=== PATIENT | female | born 1985 | race Caucasian/White ===

== ENCOUNTER → 2017-04-21 | Outpatient (CLI) | payer BC, OTHER, MEDICAID ==
[~2017-04-21] MED LIST: ALEVE 220MG220 MG PO; AMOXICILLIN 8751 TAB PO; ANAPROX DS550 MG PO; CYMBALTA 60MG60 MG PO; KETOROLAC10 MG PO; KLONOPIN 0.5MG0.5 MG PO; MACROBID 1100 MG/CAP PO; MOTRIN 600600 MG/TAB PO; NO HOME MEDICATIONS; NORCO 325 MG-51 TAB PO; PERCOCET 325 MG1 TA2 PO; PRENATAL1 TA1 PO; ROBAXIN 75750 MG/TAB PO; ULTRAM 50MG TAB50 MG PO; VOLTAREN 75 DR75 MG PO; WELLBUTRIN 75MG75 MG PO; ZOFRAN 4MG T4 MG/TAB PO
== END ==
LOC: MHCPAIN 09:41
DX: G89.29 Other chronic pain (principal); M53.3 Sacrococcygeal disorders, not elsewhere classified; M79.2 Neuralgia and neuritis, unspecified; M79.1 Myalgia
CPT/HCPCS: G0463

== ENCOUNTER 2017-11-03 13:10 | Emergency (ER) | payer OTHER ==
[~2017-11-03] VITALS: Ht 162.6 cm; Wt 46.4 kg
[2017-11-03 13:29] VITALS: TEMP 99
[2017-11-03] MEDS ORDERED: NORCO 325 MG-51 TAB PO (15:54)
[2017-11-03 16:46] VITALS: BP 129/101; PULSE 62
== END 2017-11-03 16:52 | disposition home or self-care (01) ==
LOC: COL.ER 13:10
DX: S01.511A Laceration without foreign body of lip, initial encounter (principal); S01.21XA Laceration without foreign body of nose, initial encounter; S40.211A Abrasion of right shoulder, initial encounter; S09.90XA Unspecified injury of head, initial encounter; S09.93XA Unspecified injury of face, initial encounter; F17.210 Nicotine dependence, cigarettes, uncomplicated; Z23 Encounter for immunization; Z88.4 Allergy status to anesthetic agent; Y04.0XXA Assault by unarmed brawl or fight, initial encounter

== ENCOUNTER 2019-08-23 11:22 | Day surgery (SDC) | payer SELFPAY ==
[~2019-08-23] VITALS: Ht 162.6 cm; Wt 49.6 kg
[2019-08-23 13:52] VITALS: BP 101/54; PULSE 82; TEMP 97.5
--- NOTE | 2019-08-23 13:52 | NUR ---
1352-Patient arrived to [facility] via stretcher from the OR s/p ORIF to left 5th metacarpal. Bulky yogesh wrap dressing and sling in place to left upper extremity. Patient is drowsy although responds easily to verbal stimuli. She currently denies having any pain or nausea. Connected to dynamap and vitals are stable. SPO2 is 98% on room air. She is able to wiggle fingers although she did have a supraclavicular block by [employer]OB[employer] TECHNICIAN. CMS intact. Lungs are clear. IV site is patent to her right hand and fluids are infusing easily. Warm blankets provided for comfort. She is requesting to rest and does not wish to have anything to drink yet.
[2019-08-23 14:05] VITALS: BP 97/60; PULSE 70
--- NOTE | 2019-08-23 14:05 | NUR ---
1405-Patient continues resting comfortably. Left upper extremity elevated on a pillow and ice pack applied. Vitals remain stable. She continues to deny having any pain or nausea. Dressing is clean and intact with sling in place. Additional warm blankets provided per request.
[2019-08-23 14:20] VITALS: BP 102/54; PULSE 68
--- NOTE | 2019-08-23 14:20 | NUR ---
1420-Patient is awake and texting on her cell phone. She reports feeling "ready to eat." Given toast with jelly x2 pieces, ice water, and grape juice per request. She continues to deny having any pain. Vitals remain stable. Head of bed elevated for her to eat. She continues to have LUE elevated on pillow with ice pack in place off and on as tolerated.
[2019-08-23 14:35] VITALS: BP 104/56; PULSE 70; TEMP 98
--- NOTE | 2019-08-23 14:35 | NUR ---
1435-Patient tolerated juice and toast without any nausea. She continues to deny any pain. Moves fingers although left upper extremity remains "numb and tingly" from the block. Assisted her with ambulating to the bathroom and she voided without difficulty. IV converted to saline lock. She is now resting in bed and eating her second piece of toast. Call muniz in reach.
[2019-08-23 15:05] VITALS: BP 98/61; PULSE 60
--- NOTE | 2019-08-23 15:05 | NUR ---
1505-Patient continues doing well and vitals are stable. Tolerated toast and juice without any complaints. Discussed using ice pack at home and importance to keep her LUE elevated and she verbalized understanding. IV site dc'd at this time. Tip of catheter intact. Cotton ball and coban wrap applied. Patient is getting dressed and ready for discharge home. Her mother is coming to pick her up. ADDY Post has discharge instructions prepared and will discuss with her shortly. Follow up appointment made by ADDY Post.
--- NOTE | 2019-08-23 15:15 | NUR ---
Dismissal instructions given and voices understanding of home cares and follow up as scheduled. Instructed to keep the left arm elevated and ice to the left hand.
--- NOTE | 2019-08-23 15:22 | NUR ---
Patient dismissed to home driven by parent and taken to the front door per wheelchair and assisted into vehicle by Shannon DALY. Dismissal instructions in hand.
== END 2019-08-23 15:22 | disposition home or self-care (01) ==
LOC: SDCO 11:22
DX: S62.327A Displaced fracture of shaft of fifth metacarpal bone, left hand, initial encounter for closed fracture (principal); Z88.5 Allergy status to narcotic agent; Z90.49 Acquired absence of other specified parts of digestive tract; Z20.828 Contact with and (suspected) exposure to other viral communicable diseases
CPT/HCPCS: C1713; J0690; J2250; J2704; J3010; J7120